=== PATIENT | female | born 2000 | race Two or more races ===

== ENCOUNTER 2024-09-13 17:50 | Emergency (ER) | payer MEDICAID, SELFPAY ==
[2024-09-13 18:07] VITALS: BP 125/85; PULSE 66; RESP 18; TEMP 37.1; O2SAT 97; BMI 28.4
--- NOTE | 2024-09-13 18:24 | XR_ITS ---
Examination: Pelvic ultrasound, transabdominal, complete Technique: Transabdominal ultrasound of the pelvis performed using grayscale imaging Date and time of exam: September 13, 2024 1932 hours INDICATIONS: Onset of pelvic pain today FINDINGS: Uterus 7.2 cm endometrial stripe 0.2 cm No uterine mass or intrauterine gestation. Right ovary 4.4 cm arterial flow Left ovary 4.1 cm arterial flow IMPRESSION: Negative examination
--- NOTE | 2024-09-13 18:24 | PD.EDABDPN ---
ED Abdominal Pain RME/HPI General Chief Complaint: Abdominal Pain Stated complaint: Abdominal pain left lower quadrant Time seen by provider: 09/13/24 18:11 Arrival date/time: 09/13/24 17:50 RME / HPI RME / HPI narrative: 23-year-old female patient came in for evaluation regarding left pelvic pain. Onset of symptoms since early today's pain and pain to the left pelvic area, described as dull ache, severity moderate. Pain radiates to the back. Patient denies any vomiting diarrhea constipation dysuria frequency vaginal bleeding or spotting. Denies any abnormal vaginal discharges. Patient denies any fever also. Related Data Previous Rx's ?Medication ?Instructions ?Recorded benzonatate 100 mg capsule 100 mg PO TID #14 caps 07/16/23 cephalexin 500 mg capsule 500 mg PO Q8H 7 days #21 caps 09/13/24 ibuprofen 800 mg tablet 800 mg PO Q8H PRN pain #30 tabs 09/13/24 tamsulosin 0.4 mg capsule (Flomax) 0.4 mg PO QDAY #10 caps 09/13/24 Allergies Allergy/AdvReac Type Severity Reaction Status Date / Time No Known Allergies Allergy Verified 09/13/24 17:54 Review of Systems Review of Systems Narrative Review of Systems: Review of system reviewed and within normal limits except mentioned in HPI ED Exam Narrative Physical exam: VITAL SIGNS: Reviewed. GENERAL APPEARANCE: Alert and interactive, follows commands, no acute distress, HEAD AND FACE: Non-traumatic. ENT: PERRL, pink conjunctivitis, eyelid no trauma, Mucous membrane moist. NECK: Supple, nontender, no nuchal rigidity. CHEST: No tenderness, no crepitus, no paradoxical movement, no retractions. LUNGS: Clear, well ventilated, symmetric, no rales, no wheezing, no ronchi, no stridor, good breath sounds bilaterally. HEART: Regular rate, regular rhythm, no murmur, no gallops. ABDOMEN: Soft, positive bowel sounds, nondistended, no guarding, no pelvic tenderness,, no rebound, no masses, RECTAL: Deferred. GENITAL: Deferred. NEUROLOGICAL: Gross motor function intact sensory function intact, Appropriate for age. MUSCULOSKELETAL: low back nontender, full range of motion. EXTREMITIES: Nontender, full range of motion. SKIN: Color pink, dry, no rash, no lacerations, no abrasions, no contusions. LYMPHATICS: Deferred. Course Quality Measures none Orders Category Date Time Status CT abdomen pelvis wo con Stat Exams 09/13/24 20:38 Completed US pelvic complete Stat Exams 09/13/24 18:24 Completed CBC [CBC] Stat Lab 09/13/24 18:35 Completed CMP [Comprehensive Metabolic Panel] Stat Lab 09/13/24 18:35 Completed HCG Qualitative,Urine Stat Lab 09/13/24 19:31 Completed Lipase Stat Lab 09/13/24 18:35 Completed UA, C/S IF [Urinalysis, C/S if Indicated] Stat Lab 09/13/24 19:31 Completed Acetaminophen Tab [Tylenol ES Tab] Med 09/13/24 18:24 Discontinued 1,000 mg PO X1 ONE Ketorolac Inj [Toradol Inj] Med 09/13/24 22:52 Once 30 mg IM X1 ONE Tamsulosin HCl [Flomax] Med 09/13/24 22:52 Once 0.4 mg PO X1 ONE cephALEXin [Keflex] Med 09/13/24 22:55 Once 500 mg PO X1 ONE Vital Signs Vital signs: Vital Signs Temperature 98.7 F 09/13/24 18:07 Pulse Rate 66 09/13/24 18:07 Respiratory Rate 18 09/13/24 18:07 Blood Pressure 125/85 H 09/13/24 18:07 Pulse Oximetry (%) 97 09/13/24 18:07 Oxygen Delivery Method Room Air 09/13/24 18:07 Abdominal Pain MDM MDM Narrative MDM Narrative:: 23-year-old female patient came in for evaluation regarding left pelvic pain. Onset of symptoms since early today's pain and pain to the left pelvic area, described as dull ache, severity moderate. Pain radiates to the back. Patient denies any vomiting diarrhea constipation dysuria frequency vaginal bleeding or spotting. Denies any abnormal vaginal discharges. Patient denies any fever also. Patient's workup is significant for mild UTI. CT scan of the abdomen and pelvis showed 4Mild left hydronephrosis secondary to 4 mm proximal left ureteral calculus Patient received Toradol, with significant improvement of back pain. Was also given Keflex was advised to closely follow-up with urologist. Clinically patient is not having any sign of sepsis. Patient data External records reviewed:: None Clinical information provided by:: patient Social determinants that could affect healthcare access:: none Patient has the following chronic illnesses:: None How is presenting disease/condition affected by chronic disease/condition?: no chronic disease Evaluation data The following diagnostics were reviewed and interpreted by me:: lab results and radiology exam(s) Lab and/or radiology exams considered but not ordered:: None Interpretation Summary: See results MDM Medications / Prescriptions Medications or Prescriptions considered but not ordered:: None Medication administrations:: Medication Administration History Cephalexin HCl (Cephalexin 250 Mg Capsule) 500 mg PO X1 ONE Stop: 09/13/24 22:56 Ketorolac Tromethamine (Ketorolac Inj 60 Mg/2 Ml Vial) 30 mg IM X1 ONE Stop: 09/13/24 22:53 Tamsulosin HCl (Tamsulosin Hcl 0.4 Mg Capsule) 0.4 mg PO X1 ONE Stop: 09/13/24 22:53 Discontinued Medications Acetaminophen (Acetaminophen 500 Mg Tablet) 1,000 mg PO X1 ONE Stop: 09/13/24 18:25 Last Admin: 09/13/24 19:07 Dose: 1,000 mg Documented By: [place] Keflex, Toradol, Flomax Consultations Consultation(s) initiated? (list below): No Diagnosis Differential diagnosis abdominal pain: abdominal pain and calculus of kidney Most likely diagnosis given after review of the tests above:: Ureterolithiasis Admission Indicated Admission indicated?: not indicated Admission Request Was there a request for admission?: No Disposition Plan Disposition Plan: Discharge Discharge Attestation Discharge Attestation: The patient was given an opportunity to ask questions and understood the discharge instructions. Discharge instructions specifically effects, indications for sooner follow up or return to the emergency department, and the expected course of current diagnosis. Patient condition: Stable Discharge Plan Plan Patient Disposition: HOME (Self Care) Discharge Disposition comment: stable Prescriptions/Referrals Prescriptions/Med Rec: New ibuprofen 800 mg tablet 800 mg PO Q8H PRN (Reason: pain) Qty: 30 0RF tamsulosin [Flomax] 0.4 mg capsule 0.4 mg PO QDAY Qty: 10 0RF cephalexin 500 mg capsule 500 mg PO Q8H 7 Days Qty: 21 0RF No Action benzonatate 100 mg capsule 100 mg PO TID Qty: 14 0RF Referrals: No Primary/Family,Physician [Primary Care Provider] - In 1 week Problem List Clinical Impression: Abdominal pain, Ureterolithiasis Patient/Caregiver Discharge Instructions Discharge Activity: activity as tolerated Education Materials: ED Kidney Stone w/ Colic Additional Instructions: Thank you for the opportunity for serving you today. You are stable for discharged . You are advised to: Follow-up with your PCP in 1 to 2 days and ask for referral to urologist Return to ED for worsening of symptoms Increase oral fluids Take medication as prescribed Strain your urine and collect the stone unstable for your urologist visit. Print Language: Faroese Stand Alone Forms: Monique Award Info., Patient Portal Info Letter PA/FAVIOLA Supervising Physician PA/FAVIOLA Supervising Physician: MD Deanna
[2024-09-13] MEDS: ACETAMINOPHEN 500 MG TABLET 1000 MG PO (19:07)
[2024-09-13 19:19] LABS: Basophils # (Auto) 0.1 Thou/mm3 (0.0-0.2); Basophils % (Auto) 1 % (0-2.5); Eosinophils # (Auto) 0.2 Thou/mm3 (0.0-0.5); Eosinophils % (Auto) 2 % (0-10); Hematocrit 41.6 % (36.0-46.0); Hemoglobin 13.6 g/dL (12.0-16.0); Immature Granulocytes Auto 0.03 Thou/mm3 (0.00-0.00); Lymphocytes # (Auto) 2.6 Thou/mm3 (1.0-4.8); Lymphocytes % (Auto) 27 % (10-50); Mean Corpuscular HGB Conc 32.7 g/dl (31.0-37.0); Mean Corpuscular Hemoglobin 28.3 pg (25.0-35.0); Mean Corpuscular Volume 87 fL (80-100); Monocytes # (Auto) 0.4 Thou/mm3 (0.0-0.8); Monocytes % (Auto) 4 % (0-12); Neutrophils # (Auto) 6.5 Thou/mm3 (1.8-7.7); Neutrophils % (Auto) 66 % (37-80); Nucleated Red Blood Cell # 0.00 Thou/mm3 (0.00-0.00); Nucleated Red Blood Cell % 0 /100 WBC (0); Platelet Count 312 Thou/mm3 (140-440); RDW Standard Deviation 41.8 fL (36.4-46.3); Red Blood Count 4.81 Miln/mm3 (4.00-5.20); White Blood Count 9.8 Thou/mm3 (3.6-11.0)
[2024-09-13 20:04] LABS: Collection Type, Urine Clean Catch
[2024-09-13 20:11] LABS: Alanine Aminotransferase 39 U/L (10-49); Albumin, Serum 4.9 gm/dL (3.5-5.0); Albumin/Globulin Ratio 1.8 (1.2-2.2); Alkaline Phosphatase 85 U/L (46-116); Anion Gap 9 (7-16); Aspartate Amino Transferase 28 U/L (0-34); BUN/Creatinine Ratio 12 Ratio (12-20); Bilirubin,Total 0.5 mg/dL (0.3-1.2); Blood Urea Nitrogen 11 mg/dL (9-23); Calcium 9.9 mg/dL (8.3-10.6); Calcium (Corrected) 9.9 mg/dL (8.5-10.1); Carbon Dioxide 25.7 mMol/L (20.0-31.0); Chloride 107 mMol/L (98-107); Creatinine (Component) 0.9 mg/dL (0.6-1.3); Estimated Creatinine Clearance 114.6 mL/min (>60); Globulin 2.8 gm/dL (2.3-3.5); Glucose 101 mg/dL (74-106); Osmolality,Calculated 282 (275-295); Potassium 4.0 mMol/L (3.4-5.1); Sodium 142 mMol/L (136-145); Total Protein 7.7 gm/dL (5.7-8.2); eGFR > 60 See Note
[2024-09-13 20:26] LABS: Bilirubin,Urine Negative (Negative); Blood,Urine 3+ (Negative); Clarity,Urine Turbid (Clear/Hazy); Color,Urine Yellow (Lt Yel-Yel); Culture Indicated,Urine Not Indicated; Glucose, Urine Negative (Negative); Ketones,Urine Negative (Negative); Leukocyte Esterase,Urine Positive (Negative); Nitrite,Urine Negative (Negative); PH,Urine 6.0 (5.0-7.0); Protein,Urine Trace (Neg - Trace); RBC,Urine 2383 /hpf (0-3); Specific Gravity,Urine 1.024 (1.001-1.035); Squamous Epithelial Cell,Urine 3 /hpf (0-5); Urobilinogen,Urine Negative mg/dL (0.0-1.0); WBC,Urine 7 /hpf (0-5)
[2024-09-13 20:30] LABS: HCG Qualitative,Urine Negative
--- NOTE | 2024-09-13 20:38 | XR_ITS ---
Examination: CT abdomen and pelvis without contrast. Coronal 3-D reconstructions. Sagittal 2-D reconstructions. Date and time of exam:September 13, 2024 1018 hours INDICATIONS: Left lower abdominal pain and flank pain beginning last week CTDI: vol (mGy): 9.21 DLP: (mGycm): 551 Technique: Axial images of the abdomen have been obtained, 3 mm slice thickness Intravenous contrast material has not been administered. Low dose protocols were performed. One or more of the following dose reduction techniques were used; automated exposure control, adjustment of the mA and/or KV according to patient size, use of iterative reconstruction technique. Findings: No focal liver or splenic lesion Absent gallbladder No pancreatic or adrenal mass Mild left hydronephrosis secondary to a 4 mm proximal left ureteral calculus 3 mm lower pole right renal calculus Aorta normal size Normal appendix No bowel obstruction No bladder mass or bladder calculi The osseous structures are intact IMPRESSION: Mild left hydronephrosis secondary to 4 mm proximal left ureteral calculus
[2024-09-13 22:57] LABS: Lipase 39 U/L (12-53)
[2024-09-13] MEDS: TAMSULOSIN HCL 0.4 MG CAPSULE PO (23:05)
[2024-09-13] MEDS: KETOROLAC INJ 60 MG/2 ML VIAL 30 MG IM (23:08)
[2024-09-14 00:05] VITALS: RESP 18
== END 2024-09-14 00:13 | disposition home or self-care (01) ==
PROVIDERS: Nurse Practitioner Family; Emergency Provider Emergency Medicine
DX: N13.2 Hydronephrosis with renal and ureteral calculous obstruction (principal); R10.2 Pelvic and perineal pain
CPT/HCPCS: 36415; 74176; 76856; 80053; 81001; 81025; 83690; 85025; 96372; 99283; J1885; A9270